=== PATIENT | male | born 1965 ===

== ENCOUNTER → 2020-04-14 | Outpatient (CLI) | payer SELFPAY | END | disposition home or self-care (01) | LOC: LAB EV 09:09 → LAB SHORT 09:09 | DX: L72.3 Sebaceous cyst (principal) | CPT/HCPCS: 87070; 87075; 87205 ==

== ENCOUNTER → 2020-04-14 | Outpatient (CLI) | payer SELFPAY | END | disposition home or self-care (01) | LOC: LAB SHORT 17:05 → LAB EV 17:05 | DX: L72.3 Sebaceous cyst (principal) | CPT/HCPCS: 87070; 87077; 87147; 87186; 87205 ==